=== PATIENT | female | born 1935 | race African-American/Black ===

== ENCOUNTER 2019-01-19 09:39 | Outpatient (CLI) | payer MEDICARE ==
[2019-01-19 12:01] LABS: Hemoglobin 13.7 gm/dl (10.1-14.3); Mean Corpuscular HGB Conc 33 % (30-34); Mean Corpuscular Volume 90 fl (79-97); Red Blood Count 4.57 M/mm3 (3.65-5.03); Red Cell Distribution Width 14.4 % (13.2-15.2)
[2019-01-19 12:31] LABS: Alanine Aminotransferase 14 units/L (7-56); Albumin 4.5 g/dL (3.9-5); BUN/Creatinine Ratio 19; Blood Urea Nitrogen 15 mg/dL (7-17); Calcium 9.4 mg/dL (8.4-10.2); Chol/HDL Ratio 3.55 %; HDL Cholesterol 40 mg/dL (40-59); Hemolysis Index 8; LDL Cholesterol,Direct 93 mg/dL (50-130)
[2019-01-19 13:38] LABS: Platelet Count 250 K/mm3 (140-440)
[2019-01-22 12:57] LABS: Vitamin D, 25-OH, D2 <4 ng/mL
== END 2019-01-19 09:40 | disposition home or self-care (01) ==
LOC: LAB 09:39
PROVIDERS: ATTEND Internal Medicine
DX: I10 Essential (primary) hypertension (principal); E78.2 Mixed hyperlipidemia; K21.9 Gastro-esophageal reflux disease without esophagitis; R73.9 Hyperglycemia, unspecified
CPT/HCPCS: 36415; 80053; 80061; 82306; 82607; 83036; 84443; 85027